=== PATIENT | male | born 1945 | race Caucasian/White ===

== ENCOUNTER 2018-10-15 13:28 | Emergency (ER) | payer OTHER, SELFPAY ==
--- NOTE | 2018-10-15 13:35 | DI.RAD.S_ITS ---
PROCEDURE: XR HAND LT MIN 3V INDICATIONS: table saw to 3-5th digits TECHNIQUE: 4 views of the hand(s) acquired. COMPARISON: None. FINDINGS: Bones: There is irregularity of the distal tuft of the fourth digit. Soft tissues: No suspicious soft tissue calcifications. Fourth digit soft tissue laceration is present. IMPRESSION: Poor digit soft tissue laceration with distal tuft irregularity consistent with fracture. Dictated by: Kayleigh De Jesus M.D. on 10/15/2018 at 14:50 Approved by: Kayleigh De Jesus M.D. on 10/15/2018 at 14:51
[2018-10-15 13:36] VITALS: BP 164/83; PULSE 64; RESP 18; O2SAT 98
[2018-10-15 13:42] VITALS: TEMP 36.6
--- NOTE | 2018-10-15 13:52 | ED_ITS ---
HPI - Wound/Laceration <HELEN Navarro - Last Filed: 10/15/18 23:23> General Chief Complaint: Wound/Laceration Stated Complaint: cut on left ring finger Time Seen by Provider: 10/15/18 13:31 Source: patient and family Mode of arrival: ambulatory Limitations: no limitations History of Present Illness HPI narrative: This is a 73-year-old male, nonsmoker, presents with family with jagged irregular laceration on his left 2nd through 4th finger by a table saw which happened at 1:00 p.m. today. Patient reports his tetanus immunization is not up-to-date. Right dominant hand. Wound was dressed with with pressure prior arriving to ED with minimum bleeding. Patient is able to move those affected fingers but reports some tingling. Related Data Previous Rx's Medication Instructions Recorded cephalexin [Keflex] 500 mg PO Q6H 7 Days #28 cap 10/15/18 Allergies Allergy/AdvReac Type Severity Reaction Status Date / Time No Known Drug Allergies Allergy Verified 10/15/18 13:43 Review of Systems <HELEN Navarro - Last Filed: 10/15/18 23:23> Review of Systems ROS Unobtainable: All systems reviewed & are unremarkable except as noted in HPI and below PFSH <HELEN Navarro - Last Filed: 10/15/18 23:23> Social History (Updated 10/15/18 @ 13:54 by HELEN Navarro) Smoking Status: Never smoker Social History Smoking Status: Never smoker Exam <HELEN Navarro - Last Filed: 10/15/18 23:23> Narrative Exam Narrative: General appearance: well developed, well nourished, in no acute distress. Head: normocephalic, atraumatic, no scalp lesions, non-tender. Eye: pupil equal, round. EOMI. Nose: nares patent. Oral: mucosa moist. Neck/Thyroid: neck supple, full range of motion, no visible masses. Skin: Irregular checked shape laceration to left hand, 2nd to 4th fingers. 4th finger deep laceration along the vertical medial nail line. Heart: no clubbing, no cyanosis, no edema. Lungs: Breathing even and unlabored. No stridor. No accessory muscles used. Chest: normal shape and expansion. Abdomen: non-obese, non-distended. Neurologic: alert and oriented. Cognitive exam, [employer] BLINDSTITCH and PNS grossly intact on informal exam. Psych: good eye contact, normal affect. Initial Vital Signs Initial Vital Signs: Vital Signs Pulse Rate 64 10/15/18 13:36 Respiratory Rate 18 10/15/18 13:36 Blood Pressure 164/83 H 10/15/18 13:36 Pulse Oximetry 98 10/15/18 13:36 Extrem Left upper extremity: hand Details: normal capillary refill, vascular exam Details: radial pulse present, normal ROM of fingers and laceration (L 2, 3rd, 4h fingers) <Angie Arcos DO - Last Filed: 10/16/18 08:09> Initial Vital Signs Initial Vital Signs: Vital Signs Pulse Rate 64 10/15/18 13:36 Respiratory Rate 18 10/15/18 13:36 Blood Pressure 164/83 H 10/15/18 13:36 Pulse Oximetry 98 10/15/18 13:36 Procedures <HELEN Navarro - Last Filed: 10/15/18 23:23> Laceration Repair Laceration 1: Site: upper extremity (4th finger) Side (If applicable): left Size (cm): 3 Description: irregular Depth: simple, single layer Local Anesthetic: lidocaine 1% and bupivacaine 0.5% Amount of anesthesia used (mL): 1 Pre-repair: wound explored and irrigated extensively Skin layer closed with: nylon Size (cm): 4-0 Technique: simple, interrupted Course <HELEN Navarro - Last Filed: 10/15/18 23:23> Orders Ordered: Discontinued Medications Bacitracin (Bacitracin) 2 applic TOP NOW ONE Stop: 10/15/18 14:51 Diphtheria/Tetanus/Acell Pertussis (Adacel) 0.5 ml IM .ONCE ONE Stop: 10/15/18 13:37 Last Admin: 10/15/18 13:53 Dose: 0.5 ml Documented by: DIANN Lidocaine/Sodium Bicarbonate (Buffered Lidocaine 10 Ml Syr) 10 ml INJ NOW ONE Stop: 10/15/18 14:51 Vital Signs Vital signs: Vital Signs - 8 hr 10/15/18 16:45 Pulse Rate 60 Respiratory Rate 18 Blood Pressure 160/80 H Pulse Oximetry 98 <Angie Arcos DO - Last Filed: 10/16/18 08:09> Orders Ordered: Discontinued Medications Bacitracin (Bacitracin) 2 applic TOP NOW ONE Stop: 10/15/18 14:51 Diphtheria/Tetanus/Acell Pertussis (Adacel) 0.5 ml IM .ONCE ONE Stop: 10/15/18 13:37 Last Admin: 10/15/18 13:53 Dose: 0.5 ml Documented by: DIANN Lidocaine/Sodium Bicarbonate (Buffered Lidocaine 10 Ml Syr) 10 ml INJ NOW ONE Stop: 10/15/18 14:51 Vital Signs Vital signs: Vital Signs - 8 hr 10/15/18 16:45 Pulse Rate 60 Respiratory Rate 18 Blood Pressure 160/80 H Pulse Oximetry 98 MDM - Wound/Laceration <HELEN Navarro - Last Filed: 10/15/18 23:23> Differential Diagnosis Differential diagnosis: Likely laceration and other (Open fracture in left finger) Medical Records Attestation: I reviewed the patient's medical records. Imaging Data XR-Hand LT: Radiologist's impression: [place] [address] XRay Report Signed Patient: Herber Rodriguez RMR#: [id number] : 6Acct:[id number] Age/Sex: 73 / MDate of Service: 10/15/18 Loc: ED Accession Number: [id number] Procedure: XR hand LT min 3V Ordering Provider: Yevgeniy Diaz PROCEDURE: XR HAND LT MIN 3V INDICATIONS: table saw to 3-5th digits TECHNIQUE: 4 views of the hand(s) acquired. COMPARISON: None. FINDINGS: Bones: There is irregularity of the distal tuft of the fourth digit. Soft tissues: No suspicious soft tissue calcifications. Fourth digit soft tissue laceration is present. IMPRESSION: Poor digit soft tissue laceration with distal tuft irregularity consistent with fracture. Dictated by: Kayleigh De Jesus M.D. on 10/15/2018 at 14:50 Approved by: Kayleigh De Jesus M.D. on 10/15/2018 at 14:51 MDM Narrative Medical decision making narrative: The patient presents to ED with his family after sustained irregular shape of laceration on his left 2nd, 3rd, 4th fingers. The 4th finger deep laceration was along the medial vertical nail line. X-ray test was done any showed distal tuft 4th finger fracture with poor distal soft tissue laceration. The laceration was repaired through nail and adjcent tissue. Please see procedural note. Dr. Susan Elizabeth was consulted and was instructed to have the patient follow up at ortho clinic. Since the laceration was not involved of laceration of nail and patient requested to keep his fingernail at this time, the affected finger nail was not removed. Patient soaked affected fingers into Hibiclens and mixture of water for 15 minutes. Patient tolerated the procedure well. We discussed return precautions of signs and symptoms are infection. Patient advised to follow up with [facility] resources phone number has been provided to arrange primary care physician. Patient was to home with Keflex and advised to complete a whole co urse of antibiotic medication. Patient and spouse informed of home wound care. 2nd and 3rd fingers were cleaned and dressed with bacitracin and gauze. Tetanus immunization was updated today. Patient and family member agree with the treatment plan and no further questions were expressed at this time. Discharge Plan Departure Patient Disposition: Home Clinical Impression: Open fracture of phalanx of finger Qualifiers: Encounter type: initial encounter Finger: ring finger Phalanx: distal Fracture alignment: nondisplaced Laterality: left Qualified Code(s): S62.665B - Nondisplaced fracture of distal phalanx of left ring finger, initial encounter for open fracture Discharge Date/Time: 10/15/18 16:45 Instructions: DI for Open Fracture Activity Restrictions/Additional Instructions: You have been diagnosed with [laceration and possible 4th finger tip tuft ftracture per xray test from table saw along skin avulsion on 2nd and 3rd fingers]. What to do: *Take your medications as directed. Please start antibiotic medications today to prevent infection in your skin and bone. Please elevate affected hand and use ice pack next couple of days about 4 times a day. Please use [id number] Tylenol and or Motrin as needed for pain. Extra-strength Tylenol 2 tabs for every 6 hours, ibuprofen 600 mg about 3 times a day with food. *Follow up with orthopedic doctor in1-3 days, call for an appointment. Let them know you were seen in the ED and that we asked you to be seen in follow up. *Return to ED if you have any new, worsening, or concerning symptoms, such as [increasing pain, swelling, redness, pus-like discharge, fever, warmth, any with acute concerns. Sutures should be removed in 7-10 days. This could be done by walk-in clinic or return to ED if you do not have a primary care physician. Suture care info: Please do not get your wound soaked in the water until suture removal. Keep your dressing intact for next 24 hrs. After then, you could remove your dressing, wash with soap and water. Pat dry with clean paper towel and dress it with antibiotic ointment. You can change dressing as needed and daily. Please monitor for signs and symptoms for infection such as increasing redness, swelling, warmth, pain, fever, purulent discharge. If this occurs, please return to ED or follow up with your primary care physician since your wound may be gotten infected. Please follow up with your primary care provider in 2-3 days for recheck wound. This can be done by your primary provider, walk-in clinic or here in ED. Please keep your wound clean, dry and intact all times. Prescriptions: New cephalexin [Keflex] 500 mg capsule 500 mg PO Q6H 7 Days Qty: 28 RF: 0 Referrals: [facility] [Outside] [facility] [Outside]
[2018-10-15] MEDS: TET,DIPH,PERTUSS(ACELL),VAC/PF 0.5 ML SYRINGE IM (13:53)
--- NOTE | 2018-10-15 16:00 | PC.NURSE ---
Bacitracin and lidocaine administered by NP. Yevgeniy
[2018-10-15 16:45] VITALS: BP 160/80; PULSE 60; RESP 18; O2SAT 98
== END 2018-10-15 16:45 | disposition home or self-care (01) ==
PROVIDERS: Emergency Provider Nurse Practitioner Family
DX: S62.665B Nondisplaced fracture of distal phalanx of left ring finger, initial encounter for open fracture (principal); Z23 Encounter for immunization
CPT/HCPCS: 12002; 73130; 90471; 99283; 90715